=== PATIENT | male | born 2000 | race Caucasian/White ===

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

== ENCOUNTER → 2019-10-26 | Outpatient (CLI) | payer OTHER ==
[2018-08-16 11:39] VITALS: BP 116/84
== END ==
LOC: RAD 12:56
DX: R07.1 Chest pain on breathing (principal); R06.02 Shortness of breath

== ENCOUNTER → 2021-05-02 | Outpatient (CLI) | payer OTHER ==
[2021-05-02 10:18] LABS: URINE WBC 0 /hpf (0-3)
[2021-05-02 10:59] LABS: BASO # 0.02 K/mm3 (0.02-0.10); EOS # 0.11 K/mm3 (0.04-0.40); EOS % 2.4 % (0.0-4.0); HEMATOCRIT 40.4 % (42.0-52.0); LYMPH# 1.94 K/mm3 (1.50-4.00); MEAN CELL VOLUME 86 fl (78-100); MEAN CORPUSCULAR HEMOGLOBIN 30 pg (27-31); MEAN CORPUSCULAR HGB CONC 35 g/dL (33-37); MEAN PLATELET VOLUME 9.7 fl (7.4-10.4); MONO # 0.49 K/mm3 (0.20-0.80); NEU # 2.01 K/mm3 (1.40-6.50); PLATELET COUNT 183 K/mm3 (130-400); RED CELL DISTRIBUTION WIDTH 12.5 % (11.5-14.5); WHITE BLOOD COUNT 4.6 K/mm3 (4.8-10.8)
[2021-05-02 11:01] LABS: ALBUMIN 4.2 g/dL (3.5-5.0); POTASSIUM 4.2 mmol/L (3.5-5.1)
[2021-05-02 11:03] LABS: CALCIUM 10.1 mg/dL (8.3-10.5)
[2021-05-02 11:04] LABS: TOTAL PROTEIN 7.3 g/dL (6.4-8.3)
[2021-05-02 11:06] LABS: TOTAL BILIRUBIN 1.8 mg/dL (0.2-1.2)
[2021-05-02 13:18] LABS: PH-URINE 6.5 (5.0 - 8.0); URINE APPEARANCE CLEAR; URINE BILIRUBIN NEGATIVE (NEGATIVE); URINE BLOOD NEGATIVE (NEGATIVE); URINE COLOR YELLOW; URINE GLUCOSE NEGATIVE (NEGATIVE); URINE KETONE NEGATIVE (NEGATIVE); URINE LEUKOCYTE ESTERASE NEGATIVE (NEGATIVE); URINE NITRATE NEGATIVE (NEGATIVE); URINE PROTEIN(semi-quant) NEGATIVE (NEGATIVE); URINE UROBILINOGEN NORMAL (NORMAL)
== END ==
LOC: LAB 10:12
PROVIDERS: Physician Assistant
DX: R10.84 Generalized abdominal pain (principal)

== ENCOUNTER → 2021-06-12 | Outpatient (CLI) | payer OTHER | LOC: LAB 09:48 | DX: Z20.822 Contact with and (suspected) exposure to COVID-19 (principal) ==

== ENCOUNTER 2021-07-11 10:39 | Emergency (ER) | payer OTHER ==
[~2021-07-11] VITALS: Ht 170.2 cm; Wt 72.7 kg
[2021-07-11] MEDS ORDERED: OMEPRAZOLE40 MG PO (10:50)
[2021-07-11 12:10] LABS: BASO # 0.03 K/mm3 (0.02-0.10); EOS % 5.4 % (0.0-4.0); HEMATOCRIT 42.7 % (42.0-52.0); HEMOGLOBIN 14.4 g/dL (13.5-18.0); LYMPH# 1.94 K/mm3 (1.50-4.00); MEAN CELL VOLUME 88 fl (78-100); MEAN CORPUSCULAR HEMOGLOBIN 30 pg (27-31); MEAN CORPUSCULAR HGB CONC 34 g/dL (33-37); MEAN PLATELET VOLUME 9.9 fl (7.4-10.4); MONO # 0.45 K/mm3 (0.20-0.80); NEU # 2.87 K/mm3 (1.40-6.50); PLATELET COUNT 195 K/mm3 (130-400); RED BLOOD COUNT 4.88 M/mm3 (4.20-5.60); RED CELL DISTRIBUTION WIDTH 12.4 % (11.5-14.5); WHITE BLOOD COUNT 5.6 K/mm3 (4.8-10.8)
[2021-07-11 12:40] LABS: ALBUMIN 4.3 g/dL (3.5-5.0); POTASSIUM 4.8 mmol/L (3.5-5.1); SODIUM 141 mmol/L (136-145)
[2021-07-11 12:42] LABS: GLUCOSE 80 mg/dL (75-110)
[2021-07-11 12:43] LABS: CARBON DIOXIDE 25 mmol/L (22-29); TROPONIN-I < 0.030 ng/mL (<0.030)
[2021-07-11 12:44] LABS: TOTAL BILIRUBIN 1.1 mg/dL (0.2-1.2)
[2021-07-11 12:47] LABS: AST-SGOT 16 U/L (5-34)
[2021-07-11 12:49] LABS: ALT/SGPT 17 U/L (0-55)
[2021-07-11 14:13] LABS: URINE APPEARANCE CLEAR; URINE COLOR YELLOW
[2021-07-11 14:14] LABS: URINE BILIRUBIN NEGATIVE (NEGATIVE); URINE BLOOD NEGATIVE (NEGATIVE); URINE GLUCOSE NEGATIVE (NEGATIVE); URINE KETONE NEGATIVE (NEGATIVE); URINE LEUKOCYTE ESTERASE NEGATIVE (NEGATIVE); URINE NITRATE NEGATIVE (NEGATIVE); URINE PROTEIN(semi-quant) TRACE (NEGATIVE); URINE UROBILINOGEN NORMAL (NORMAL); URINE WBC 0-1 /hpf (0-3)
[2021-07-11 14:22] VITALS: BP 113/61
== END 2021-07-11 14:23 | disposition home or self-care (01) ==
LOC: ED 10:39
PROVIDERS: Nurse Practitioner
DX: F41.9 Anxiety disorder, unspecified (principal); R06.02 Shortness of breath; Z20.822 Contact with and (suspected) exposure to COVID-19

== ENCOUNTER → 2021-08-28 | Outpatient (CLI) | payer OTHER ==
[~2021-08-28] MED LIST: OMEPRAZOLE40 MG PO
== END ==
LOC: LAB 09:22
DX: Z20.822 Contact with and (suspected) exposure to COVID-19 (principal)